=== PATIENT | male | born 1970 | race Caucasian/White ===

== ENCOUNTER 2018-02-21 06:02 | Day surgery (SDC) | payer MEDICARE, OTHER ==
[~2018-02-21] VITALS: Ht 175.3 cm; Wt 142.7 kg
[~2018-02-21 06:02] MED LIST: SODIUM CHLORIDE 0.9% 1,000 ML IV ONE; UNK HTN MED PO
[2018-02-21] MEDS ORDERED: LIDOCAINE HCL 4% 50 ML SOLUTION TP ONE (06:03)
[2018-02-21] MEDS ORDERED: LIDOCAINE HCL 2% 30 ML JELLY TP ONE (06:03)
[2018-02-21] MEDS ORDERED: BENZOCAINE 20% 50 MCG/SPRAY 57 GM TP ONE (06:03)
[2018-02-21] MEDS ORDERED: SODIUM CHLORIDE 0.9% 1,000 ML IV ONE (06:13)
[2018-02-21] MEDS ORDERED: FentaNYL CITRATE-PF 100 MCG/2 ML VIAL ONE (06:40)
[2018-02-21] MEDS ORDERED: MIDAZOLAM HCL 2 MG/2 ML VIAL ONE (06:40)
[2018-02-21] MEDS ORDERED: GABA-531 PO (06:41)
[2018-02-21] MEDS ORDERED: DSS100 PO (06:41)
[2018-02-21] MEDS ORDERED: OMEP20 PO (06:41)
[2018-02-21] MEDS ORDERED: FURO40 PO (06:41)
[2018-02-21] MEDS ORDERED: MONT10TA21 PO (06:41)
[2018-02-21] MEDS ORDERED: MethylPREDNISolone SOD SUCC 125 MG/2 ML VIAL IVP ONE (09:00)
[2018-02-21] MEDS ORDERED: MethylPREDNISolone SOD SUCC 125 MG/2 ML VIAL ONE (09:09)
[2018-02-21] MEDS ORDERED: OXYGEN THERAPY IH SCH (20:00)
== END 2018-02-21 10:20 | disposition home or self-care (01) ==
LOC: SURGERY 06:02
PROVIDERS: ATTEND Internal Medicine Critical Care Medicine
DX: J38.4 Edema of larynx (principal); B37.0 Candidal stomatitis; J43.9 Emphysema, unspecified; I10 Essential (primary) hypertension; Z91.030 Bee allergy status; Z79.891 Long term (current) use of opiate analgesic; Z79.899 Other long term (current) drug therapy
CPT/HCPCS: 31623; 31624; 71045; 87015; 87070; 87205; 87206; 87220; 88108; 88312; J2250; J2930; J3010; J7030